=== PATIENT | female | born 1975 | race Caucasian/White ===

== ENCOUNTER 2022-07-22 17:06 | Emergency (ER) | payer BC ==
[~2022-07-22] VITALS: Ht 172.7 cm; Wt 72.7 kg
[~2022-07-22 17:06] MED LIST: CYCL-1 PO
[2022-07-22 17:10] VITALS: BP 204/107
[2022-07-22 17:50] LABS: BASOPHILS % (AUTO) 0.5 % (0-1); EOSINOPHILS % (AUTO) 0.2 % (0-6); HEMATOCRIT 41.7 % (35.0-45.0); HEMOGLOBIN 13.9 g/dl (12.0-16.0); LYMPHOCYTES # (AUTO) 1.2 X10'3 (1.1-4.8); LYMPHOCYTES % (AUTO) 16.7 % (21-51); MEAN CORPUSCULAR HEMOGLOBIN 29.9 PG (27.0-31.0); MEAN CORPUSCULAR HGB CONC 33.3 g/dL (33.0-36.5); MEAN CORPUSCULAR VOLUME 89.6 FL (78-98); MEAN PLATELET VOLUME 8.4 FL (7.4-10.4); MONOCYTES # (AUTO) 0.5 X10'3 (0-0.9); MONOCYTES % (AUTO) 7.8 % (2-12); NEUTROPHILS # (AUTO) 5.2 X10'3 (1.8-7.7); NEUTROPHILS % (AUTO) 74.8 % (42-75); PLATELET COUNT 197 X10'3 (140-440); RED BLOOD COUNT 4.65 X10'6 (4.20-5.60); RED CELL DISTRIBUTION WIDTH 12.3 % (11.5-14.5)
[2022-07-22 17:54] LABS: ALANINE AMINOTRANSFERASE 21 U/L (12-78); ALBUMIN 4.6 G/DL (3.4-5.0); ALBUMIN/GLOBULIN RATIO 1.4 (1.1-1.5); ALKALINE PHOSPHATASE 78 IU/L (46-116); ANION GAP 10 (8-16); ASPARTATE AMINO TRANSFERASE 18 U/L (10-37); BILIRUBIN,TOTAL 0.7 MG/DL (0.1-1.0); BLOOD UREA NITROGEN 11 MG/DL (7-18); BUN/CREATININE RATIO 14.1 (10.0-20.0); CALCIUM 9.2 MG/DL (8.5-10.1); CHLORIDE 101 MMOL/L (99-107); CREATININE 0.78 MG/DL (0.40-0.90); GLUCOSE 131 MG/DL (70-104); POTASSIUM 3.3 MMOL/L (3.5-5.1); SODIUM 137 MMOL/L (135-145); TOTAL CARBON DIOXIDE 26.5 MMOL/L (24-32); eGFR 80 ML/MIN
[2022-07-22] MEDS ORDERED: sulfamethoxazole/trimethoprim DS (800/160mg) tablet PO ONE (18:00)
[2022-07-22] MEDS ORDERED: SULF1TAB49 PO (18:01)
== END 2022-07-22 18:34 | disposition home or self-care (01) ==
LOC: ER 17:08
DX: R06.02 Shortness of breath (principal); L03.115 Cellulitis of right lower limb; Z79.899 Other long term (current) drug therapy
CPT/HCPCS: 36415; 71045; 80053; 83880; 84484; 85025; 93005; 99285

== ENCOUNTER 2023-05-31 19:49 | Emergency (ER) | payer BC ==
[~2023-05-31] VITALS: Ht 172.7 cm; Wt 72.7 kg
[2023-05-31 20:02] VITALS: BP 149/107; PULSE 86; RESP 18; TEMP 98.3; O2SAT 98
== END 2023-05-31 21:03 | disposition home or self-care (01) ==
LOC: ER 19:50
DX: S90.01XA Contusion of right ankle, initial encounter (principal); Z79.899 Other long term (current) drug therapy; X58.XXXA Exposure to other specified factors, initial encounter; Y93.89 Activity, other specified; Y92.89 Other specified places as the place of occurrence of the external cause; Y99.8 Other external cause status
CPT/HCPCS: 73610; 99283; A6449

== ENCOUNTER 2023-12-05 14:48 | Inpatient (IN) | payer BC ==
[~2023-12-05] VITALS: Ht 172.7 cm; Wt 72.2 kg
[2023-12-05 15:34] LABS: BASOPHILS % (AUTO) 0.2 % (0-1); EOSINOPHILS % (AUTO) 0.1 % (0-6); HEMATOCRIT 44.3 % (35.0-45.0); HEMOGLOBIN 14.9 g/dl (12.0-16.0); LYMPHOCYTES % (AUTO) 6.2 % (21-51); MEAN CORPUSCULAR HEMOGLOBIN 30.8 PG (27.0-31.0); MEAN CORPUSCULAR HGB CONC 33.5 g/dL (33.0-36.5); MEAN PLATELET VOLUME 8.9 FL (7.4-10.4); MONOCYTES # (AUTO) 0.9 X10'3 (0-0.9); MONOCYTES % (AUTO) 5.6 % (2-12); NEUTROPHILS # (AUTO) 14.3 X10'3 (1.8-7.7); NEUTROPHILS % (AUTO) 87.9 % (42-75); PLATELET COUNT 195 X10'3 (140-440); RED BLOOD COUNT 4.82 X10'6 (4.20-5.60); RED CELL DISTRIBUTION WIDTH 12.8 % (11.5-14.5); WHITE BLOOD COUNT 16.3 X10'3 (4.5-11.0)
[2023-12-05 15:35] LABS: BILIRUBIN,URINE NEGATIVE (Neg); CLARITY,URINE CLEAR (Clear); COLOR,URINE STRAW (Yellow); GLUCOSE, URINE NEGATIVE (Neg); KETONES,URINE NEGATIVE (Neg); LEUKOCYTE ESTERASE ,URINE NEGATIVE (Neg); NITRITES, URINE NEGATIVE (Neg); OCCULT BLOOD,URINE NEGATIVE (Neg); PROTEIN,URINE NEGATIVE (Neg); UROBILINOGEN,URINE 0.2 E.U/dL (0.2-1.0)
[2023-12-05 15:42] LABS: UA COLLECTION TYPE CLN CATCH MIDSTREAM; URINE HCG NEGATIVE (NEG)
[2023-12-05 15:49] LABS: ALANINE AMINOTRANSFERASE 18 U/L (12-78); ALBUMIN 4.1 G/DL (3.4-5.0); ALBUMIN/GLOBULIN RATIO 1.1 (1.1-1.5); ALKALINE PHOSPHATASE 84 IU/L (46-116); ANION GAP 9 (8-16); ASPARTATE AMINO TRANSFERASE 31 U/L (10-37); BILIRUBIN,TOTAL 0.8 MG/DL (0.1-1.0); BLOOD UREA NITROGEN 9 MG/DL (7-18); BUN/CREATININE RATIO 11.8 (10.0-20.0); CALCIUM 9.1 MG/DL (8.5-10.1); CHLORIDE 99 MMOL/L (99-107); CREATININE 0.76 MG/DL (0.40-0.90); GLUCOSE 106 MG/DL (70-104); LIPASE 22 U/L (16-77); SODIUM 133 MMOL/L (135-145); TOTAL CARBON DIOXIDE 25.5 MMOL/L (24-32); TOTAL PROTEIN 7.9 G/DL (6.4-8.2); eCRCL 93 ML/MIN; eGFR 82 ML/MIN
[2023-12-05] MEDS: HYDROmorphone 1 mg/ml syringe IV ONE (17:45)
[2023-12-05] MEDS: ondansetron/PF 4mg/2ml inj IV ONE (17:49)
[2023-12-05] MEDS: normal saline 1000ml 1,000 ML IV ONE (18:00)
[2023-12-05] MEDS: CefTRIAXone 2gm/D5W 50ml BAG 50 ML IV ONE (18:08)
[2023-12-05] MEDS ORDERED: morphine 2 MG/ML inj. syringe IV PRN ×2 (18:10→19:50)
[2023-12-05] MEDS ORDERED: mag hydrox/Alum hydrox/simeth 30ml oral suspension PO PRN (18:10)
[2023-12-05] MEDS ORDERED: magnesium sulf-water 4G/100mL 100 ML IV PRN (18:10)
[2023-12-05] MEDS ORDERED: magnesium Cl slow-release 64mg tablet PO PRN (18:10)
[2023-12-05] MEDS ORDERED: ondansetron/PF 4mg/2ml inj IV PRN (18:10)
[2023-12-05] MEDS ORDERED: potassium Cl 20 mEq SR tablet PO PRN ×2 (18:10)
[2023-12-05] MEDS ORDERED: potassium Cl 40MEQ/1/2NS 520ml 520 ML IV PRN (18:10)
[2023-12-05] MEDS ORDERED: magnesium sulf-water 2g/50mL 50 ML IV PRN (18:10)
[2023-12-05] MEDS ORDERED: acetaminophen 325mg tablet PO PRN ×2 (18:10→19:50)
[2023-12-05] MEDS ORDERED: magnesium hydroxide 30ml (MOM) UD suspension PO PRN (18:10)
[2023-12-05] MEDS: metroNIDAZOLE-Flagyl 500mg/NS 100 ML IV STA (18:14)
[2023-12-05] MEDS ORDERED: CLON-478 PO ×2 (18:39→19:35)
[2023-12-05] MEDS ORDERED: LISI30TA4 PO ×2 (18:45→19:35)
[2023-12-05] MEDS ORDERED: LORazepam 1 MG tablet PO PRN (19:45)
[2023-12-05] MEDS ORDERED: haloperidol 5mg tablet PO PRN (19:45)
[2023-12-05 20:00] VITALS: BP 158/96; PULSE 74; RESP 16; TEMP 98.1; O2SAT 98
[2023-12-05] MEDS: heparin, porcine 5000 units/ml vial SQ SCH (20:00)
[2023-12-05] MEDS: docusate sod 100mg capsule PO SCH (20:00)
[2023-12-05] MEDS: K and/or MAG REPLACEMENT MC SCH (20:00)
[2023-12-05 20:05] VITALS: RESP 16; O2SAT 98
[2023-12-05] MEDS: cloNIDine 0.1 mg tablet PO SCH (20:39)
[2023-12-05] MEDS: HYDROcodone/acetaminophen 10/325mg tab PO PRN (20:40)
[2023-12-05] MEDS: ciprofloxacin lact 400MG/200ML 200 ML IV SCH (20:40)
[2023-12-05] MEDS: pantoprazole 40 MG vial IV SCH (20:42)
[2023-12-05] MEDS: thiamine 100mg/ml 2ml inj. IV SCH (20:42)
[2023-12-05] MEDS: dextrose 5%-1/2 normal saline 1,000 ML IV SCH (20:48)
[2023-12-05 22:00] VITALS: BP 118/76; PULSE 70; RESP 16; TEMP 98.6; O2SAT 99
[2023-12-06 06:00] VITALS: BP 107/77; PULSE 65; RESP 16; TEMP 97.6; O2SAT 99
[2023-12-06] MEDS: lisinopril 10 MG tablet PO SCH (07:06)
[2023-12-06] MEDS: metroNIDAZOLE-Flagyl 500mg/NS 100 ML IV SCH (07:08)
[2023-12-06 07:39] LABS: BASOPHILS % (AUTO) 0.4 % (0-1); EOSINOPHILS # (AUTO) 0.1 X10'3 (0-0.9); EOSINOPHILS % (AUTO) 0.8 % (0-6); HEMATOCRIT 37.9 % (35.0-45.0); HEMOGLOBIN 12.7 g/dl (12.0-16.0); LYMPHOCYTES # (AUTO) 1.1 X10'3 (1.1-4.8); LYMPHOCYTES % (AUTO) 12.6 % (21-51); MEAN CORPUSCULAR HEMOGLOBIN 31.2 PG (27.0-31.0); MEAN CORPUSCULAR HGB CONC 33.5 g/dL (33.0-36.5); MEAN CORPUSCULAR VOLUME 93.1 FL (78-98); MEAN PLATELET VOLUME 8.7 FL (7.4-10.4); MONOCYTES # (AUTO) 0.6 X10'3 (0-0.9); MONOCYTES % (AUTO) 6.5 % (2-12); NEUTROPHILS # (AUTO) 6.9 X10'3 (1.8-7.7); NEUTROPHILS % (AUTO) 79.7 % (42-75); PLATELET COUNT 150 X10'3 (140-440); RED BLOOD COUNT 4.07 X10'6 (4.20-5.60); WHITE BLOOD COUNT 8.7 X10'3 (4.5-11.0)
[2023-12-06 07:48] LABS: PROTHROMBIN TIME 10.7 SECONDS (9.0-12.0)
[2023-12-06 08:00] VITALS: RESP 14; O2SAT 99
[2023-12-06] MEDS: nicotine 14mg patch - 24hr TD SCH (08:00)
[2023-12-06 08:05] LABS: ALANINE AMINOTRANSFERASE 19 U/L (12-78); ALBUMIN 3.1 G/DL (3.4-5.0); ALKALINE PHOSPHATASE 58 IU/L (46-116); ANION GAP 7 (8-16); ASPARTATE AMINO TRANSFERASE 13 U/L (10-37); BILIRUBIN,TOTAL 0.6 MG/DL (0.1-1.0); BLOOD UREA NITROGEN 8 MG/DL (7-18); BUN/CREATININE RATIO 10.8 (10.0-20.0); CHLORIDE 102 MMOL/L (99-107); CREATININE 0.74 MG/DL (0.40-0.90); GLUCOSE 100 MG/DL (70-104); LACTATE DEHYDROGENASE 115 U/L (81-234); LIPASE 17 U/L (16-77); MAGNESIUM 1.7 MG/DL (1.5-2.4); POTASSIUM 3.8 MMOL/L (3.5-5.1); SODIUM 136 MMOL/L (135-145); TOTAL CARBON DIOXIDE 27.3 MMOL/L (24-32); TOTAL PROTEIN 6.1 G/DL (6.4-8.2); eCRCL 96 ML/MIN; eGFR 84 ML/MIN
[2023-12-06 08:15] LABS: HCG SERUM QL NEGATIVE
[2023-12-06 10:00] VITALS: BP 114/78; PULSE 58; RESP 15; TEMP 98.2; O2SAT 99
[2023-12-06] MEDS: HYDROcodone/acetaminophen 5mg/325mg tablet PO PRN (11:09)
[2023-12-06 18:00] VITALS: BP 140/87; PULSE 61; RESP 18; TEMP 97.6; O2SAT 99
[2023-12-06 20:00] VITALS: RESP 18; O2SAT 99
[2023-12-06 22:00] VITALS: BP 142/89; PULSE 61; RESP 16; TEMP 98.4; O2SAT 99
[2023-12-06] MEDS: ciprofloxacin 250mg tablet PO ONE (23:34)
[2023-12-07 06:00] VITALS: BP 117/74; PULSE 52; RESP 16; TEMP 98; O2SAT 98
[2023-12-07 07:27] LABS: BASOPHILS % (AUTO) 0.3 % (0-1); EOSINOPHILS # (AUTO) 0.1 X10'3 (0-0.9); EOSINOPHILS % (AUTO) 1.4 % (0-6); HEMATOCRIT 38.1 % (35.0-45.0); HEMOGLOBIN 12.8 g/dl (12.0-16.0); LYMPHOCYTES # (AUTO) 1.1 X10'3 (1.1-4.8); LYMPHOCYTES % (AUTO) 18.7 % (21-51); MEAN CORPUSCULAR HEMOGLOBIN 31.2 PG (27.0-31.0); MEAN CORPUSCULAR HGB CONC 33.7 g/dL (33.0-36.5); MEAN CORPUSCULAR VOLUME 92.4 FL (78-98); MEAN PLATELET VOLUME 8.6 FL (7.4-10.4); MONOCYTES # (AUTO) 0.5 X10'3 (0-0.9); MONOCYTES % (AUTO) 8.6 % (2-12); NEUTROPHILS # (AUTO) 4.3 X10'3 (1.8-7.7); PLATELET COUNT 155 X10'3 (140-440); RED BLOOD COUNT 4.12 X10'6 (4.20-5.60); RED CELL DISTRIBUTION WIDTH 12.9 % (11.5-14.5); WHITE BLOOD COUNT 6.1 X10'3 (4.5-11.0)
[2023-12-07 07:31] LABS: PROTHROMBIN TIME 10.7 SECONDS (9.0-12.0)
[2023-12-07 07:33] LABS: ALANINE AMINOTRANSFERASE 15 U/L (12-78); ALBUMIN 3.3 G/DL (3.4-5.0); ALKALINE PHOSPHATASE 56 IU/L (46-116); ANION GAP 6 (8-16); ASPARTATE AMINO TRANSFERASE 13 U/L (10-37); BILIRUBIN,TOTAL 0.5 MG/DL (0.1-1.0); BLOOD UREA NITROGEN 5 MG/DL (7-18); BUN/CREATININE RATIO 6.8 (10.0-20.0); CALCIUM 8.6 MG/DL (8.5-10.1); CHLORIDE 104 MMOL/L (99-107); CREATININE 0.73 MG/DL (0.40-0.90); GLUCOSE 97 MG/DL (70-104); LIPASE 19 U/L (16-77); MAGNESIUM 1.8 MG/DL (1.5-2.4); POTASSIUM 4.2 MMOL/L (3.5-5.1); SODIUM 136 MMOL/L (135-145); TOTAL CARBON DIOXIDE 25.9 MMOL/L (24-32); TOTAL PROTEIN 6.6 G/DL (6.4-8.2); eCRCL 97 ML/MIN; eGFR 86 ML/MIN
[2023-12-07 08:00] VITALS: RESP 18; O2SAT 97
[2023-12-07] MEDS: metroNIDAZOLE 500mg tablet PO ONE (10:20)
[2023-12-07] MEDS: ciprofloxacin 250mg tablet PO ONE (10:20)
[2023-12-07 10:29] VITALS: BP 150/99; PULSE 60; RESP 16; TEMP 98.2; O2SAT 100
[2023-12-07] MEDS ORDERED: LACT1CAP65 PO (11:17)
[2023-12-07] MEDS ORDERED: METR-159 PO (11:17)
[2023-12-07] MEDS ORDERED: CIPR-202 PO (11:17)
[2023-12-09] MEDS ORDERED: thiamine 100mg tablet PO SCH (08:00)
== END 2023-12-07 12:50 | disposition home or self-care (01) | DRG 392 ==
LOC: ER 14:49 → ORTHO 4S 18:12
PROVIDERS: ADMIT Internal Medicine; ATTEND Internal Medicine
DX: K57.32 Diverticulitis of large intestine without perforation or abscess without bleeding (principal); K81.0 Acute cholecystitis; I10 Essential (primary) hypertension; Z72.0 Tobacco use
CPT/HCPCS: 36415; 74176; 80053; 81003; 81025; 83605; 83615; 83690; 83735; 84702; 84703; 85025; 85610; 87040; 87081; 96365; 96375; 99285; G0378; J0696; J0744; J1171; J2405; J2470; J3411; J3490; J7030